=== PATIENT | male | born 1960 | race Caucasian/White ===

== ENCOUNTER 2017-02-02 05:56 | Day surgery (SDC) | payer OTHER ==
[~2017-02-02] VITALS: Ht 172.7 cm; Wt 77.6 kg
[2017-02-02 06:21] VITALS: Ht 172.7 cm; Wt 77.6 kg
[2017-02-02] MEDS ORDERED: HYDR25TA6 PO (06:55)
[2017-02-02] MEDS ORDERED: OMEP40CA6 PO (06:55)
[2017-02-02 07:11] VITALS: BP 139/84; PULSE 64; RESP 18
[2017-02-02] MEDS ORDERED: MIDAZOLAM 1 MG/ML 2 ML INJ ONE ×2 (07:51→07:52)
[2017-02-02] MEDS ORDERED: FENTAnyl 50 MCG/ML VIAL ONE (07:52)
--- NOTE | 2017-02-02 07:56 | OPPN ---
Date/Time of Note Date/Time of Note DATE: 02/02/17 TIME: 07:55 Operative Report Preoperative Diagnosis Chronic heartburn Postoperative Diagnosis Hiatal hernia and reflux esophagitis with erosions Gastritis with erosions Gastric nodule in the body of the stomach and biopsies were taken Operation/Procedure Performed Esophagogastroduodenoscopy and biopsy Surgeon see signature line billing and accounting staff assistant None Anesthesia: moderate sedation Estimated blood loss: none Transfusion Required none Specimen Gastric mucosal biopsy Biopsy of the gastric nodule Grafts/Implants none Complications none SILVIA HERNANDEZ MD Feb 02, 2017 07:56
[2017-02-02 08:11] VITALS: BP 130/77; RESP 20
--- NOTE | 2017-02-02 12:27 | GILP ---
DATE OF PROCEDURE: NAME OF PROCEDURES: Esophagogastroduodenoscopy and biopsy. SURGEON: Silvia Chamorro MD PREOPERATIVE DIAGNOSIS: Chronic heartburn. POSTOPERATIVE DIAGNOSES: 1. Hiatal hernia. 2. Reflux esophagitis with erosions. 3. Gastritis with erosions. 4. Gastric nodule in the body of the stomach and biopsies were taken for histopathology. INDICATION FOR THE PROCEDURE: Mr. Gómez Ko is a 56-year-old male patient who had chronic heartbu rn, not responding to therapy. Patient was scheduled for endoscopic examination for further evaluat ion. The procedure and possible complications were well explained to the patient. The patient understood and consented to the procedure. DESCRIPTION OF PROCEDURE: Under the influence of fentanyl and Versed, the gastroscope was carefully introduced into the esophagus and under direct vision, it was advanced to the stomach and through t he pylorus into the duodenal bulb and descending duodenum. FINDINGS: ESOPHAGUS: The patient had hiatal hernia with reflux esophagitis and erosions. STOMACH: He had gastritis with erosions. Gastric mucosal biopsies were taken for H. pylori test. The patient also had a gastric nodule in the body of the stomach and biopsies were taken for histopa thology. DUODENUM: Normal. He tolerated the procedure very well and there was no complication from the procedure. At the end o f the procedure, he was awake with stable vital signs and he was discharged home to the care of his family. IMPRESSION: Please see postoperative diagnosis. PLAN: 1. Continue omeprazole. 2. Add Zantac 300 mg p.o. at bedtime. 3. Await histopathology report. Dictated By: SILVIA MEDRANO/ELIDA Conf#: [id number] DID#: [id number]
--- NOTE | 2017-02-02 12:31 | GILP ---
DATE OF PROCEDURE: NAME OF PROCEDURES: Esophagogastroduodenoscopy and biopsy. SURGEON: Carolin Chamorro MD. PREOPERATIVE DIAGNOSES: Chronic heartburn. POSTOPERATIVE DIAGNOSES: 1. Hiatal hernia. 2. Reflux esophagitis with erosions. 3. Gastritis with erosions. 4. Gastric nodule and biopsies were taken for histopathology. 5. Gastric mucosal biopsies were taken for Helicobacter pylori test. INDICATION FOR THE PROCEDURE: Mr. Gómez Ko is a 56-year-old male patient who had chronic heartbu rn, not responding to therapy. The patient was scheduled for endoscopic examination for further juan luation. The procedure and possible complications were well explained to the patient, he understood and conse nted to the procedure. DESCRIPTION OF PROCEDURE: Under the influence of fentanyl and Versed, the gastroscope was carefully introduced into the esophagus and under direct vision, it was advanced to the stomach and through t he pylorus into the duodenal bulb and descending duodenum. FINDINGS: ESOPHAGUS: The patient had hiatal hernia with reflux esophagitis and erosions. STOMACH: The patient had gastritis with erosions. Gastric mucosal biopsies were taken for H. pylor i test. The patient had a gastric nodule in the body of the stomach and biopsies were taken for his topathology. Duodenum was normal. He tolerated the procedure very well and there was no complication from the procedure. At the end o f the procedure, he was awake with stable vital signs and he was discharged home to the care of his family. IMPRESSION: 1. Hiatal hernia. 2. Reflux esophagitis with erosions. 3. Gastritis with erosions. 4. Gastric mucosal biopsies were taken for Helicobacter pylori test. 5. Gastric nodule in the body of the stomach and biopsies were taken for histopathology. PLAN: 1. Continue omeprazole. 2. Add Zantac 300 mg p.o. at bedtime. 3. Await histopathology reports. Dictated By: CAROLIN MEDRANO/ELIDA Conf#: [id number] DID#: [id number]
--- NOTE | 2017-02-03 13:41 | CONS ---
DATE OF ADMISSION: 02/02/2017 DATE OF CONSULTATION: PREOPERATIVE GASTROENTEROLOGY CONSULTATION I thank you very much for this kind referral. HISTORY OF PRESENT ILLNESS: Mr. Gómez Ko is a 56-year-old male patient who has been referred to me for further evaluation of chronic heartburn not responding to therapy. The patient has been taki ng omeprazole. No past history of peptic ulcer disease. Not taking nonsteroidal anti-inflammatory agents. Appetite is good and no weight loss. No history of gallstones or liver disease. The patie nt also has noticed a change in the bowel habit, and he never had screening colonoscopy. He is hype rtensive. Not a diabetic. No heart disease, lung problem or kidney disease. Nonsmoker. No alcoho l abuse. No family history of gastrointestinal tract neoplasm. ALLERGIES: NO DRUG ALLERGIES. MEDICATIONS: 1. Omeprazole. 2. Hydrochlorothiazide. PHYSICAL EXAMINATION: GENERAL: He is 5 feet 6 inches tall, weighs 165 pounds. HEART: Normal heart sounds. LUNGS: Clear. ABDOMEN: Soft. No masses. Normal bowel sounds. NEUROLOGIC: Normal neurological exam. IMPRESSION: 1. Chronic heartburn not responding to therapy with omeprazole. 2. Change in the bowel habit. 3. The patient never had screening colonoscopy. 4. Hypertension. PLAN: 1. Endoscopic examination to rule out erosive esophagitis. 2. Elective screening colonoscopy at a later date. The procedures and possible complications were well explained to the patient. He understands and co nsents to the procedures. I thank you once again. With warmest personal regards. Dictated By: SILVIA MEDRANO/ELIDA Conf#: [id number] DID#: [id number]
== END 2017-02-02 11:29 | disposition home or self-care (01) ==
LOC: GIL 05:56
PROVIDERS: ATTEND Internal Medicine Gastroenterology
DX: K44.9 Diaphragmatic hernia without obstruction or gangrene (principal); K21.0 Gastro-esophageal reflux disease with esophagitis; K29.70 Gastritis, unspecified, without bleeding; I10 Essential (primary) hypertension
CPT/HCPCS: 43239; 87081; 88305; 88312; J2250; J3010; Z7610

== ENCOUNTER 2017-04-26 08:37 | Day surgery (SDC) | END 2017-04-26 10:02 | disposition home or self-care (01) ==